=== PATIENT | female | born 1985 | race Caucasian/White ===

== ENCOUNTER 2018-12-06 23:32 | Emergency (ER) | payer SELFPAY ==
[~2018-12-06] VITALS: Ht 157.5 cm; Wt 49.4 kg
[2018-12-07 00:58] VITALS: BP 104/55
== END 2018-12-07 01:43 | disposition home or self-care (01) ==
LOC: ED 12-07 01:30
DX: J02.8 Acute pharyngitis due to other specified organisms (principal); R51 Headache; B97.89 Other viral agents as the cause of diseases classified elsewhere; R42 Dizziness and giddiness; F15.129 Other stimulant abuse with intoxication, unspecified; Z72.9 Problem related to lifestyle, unspecified
CPT/HCPCS: 36415; 80048; 80307; 81003; 81025; 82040; 85025; 93005; 99284